=== PATIENT | male | born 1945 | race Caucasian/White ===

== ENCOUNTER 2016-06-20 22:58 | Emergency (ER) | payer BC ==
[~2016-06-20] VITALS: Ht 167.6 cm; Wt 109.8 kg
[2016-06-20 23:45] VITALS: PULSE 60; RESP 16; TEMP 97.5; O2SAT 94
[2016-06-21 00:03] VITALS: BP 142/76
[2016-06-21] MEDS ORDERED: NOVORP2 SQ (00:17)
[2016-06-21] MEDS ORDERED: FENO160T PO (00:18)
[2016-06-21] MEDS ORDERED: LISI-519 PO (00:19)
[2016-06-21] MEDS ORDERED: AZOR10TA4 PO (00:19)
[2016-06-21] MEDS ORDERED: NITR1SUB3 SL (00:20)
[2016-06-21] MEDS ORDERED: MULTTAB67 PO (00:20)
[2016-06-21] MEDS ORDERED: OMEGCAP PO (00:21)
[2016-06-21] MEDS ORDERED: ASCO500C PO (00:21)
[2016-06-21] MEDS ORDERED: ASPI1TAB69 PO (00:22)
[2016-06-21] MEDS ORDERED: COMB0.2S EACH EYE (00:22)
[2016-06-21] MEDS ORDERED: LATA0.002 EACH EYE (00:23)
[2016-06-21 01:10] LABS: BLOOD, URINE LARGE (NEG); KETONE, URINE NEG (NEG); NITRITE,URINE NEG (NEG); PH, URINE 5.5 (5.0-8.5)
[2016-06-21 01:17] VITALS: BP 179/78; PULSE 63; RESP 18; O2SAT 95
[2016-06-21 01:22] LABS: POTASSIUM 3.7 MEQ/L (3.5-5.1)
[2016-06-21 01:25] LABS: BICARBONATE 25.9 MEQ/L (21.0-32.0)
[2016-06-21 01:28] LABS: GLUCOSE,URINE 1000 OR GREATER mg/dL (NEG); URINE COLOR YELLOW (YELLW/STRAW)
[2016-06-21 01:30] LABS: SQUAMOUS EPITHELIAL CELL URINE 0-5 /hpf (0-5)
[2016-06-21 01:31] LABS: COMMENT (UR) CULT NOT INDICATED; CULTURE IF INDICATED CULT NOT INDICATED
[2016-06-21 01:32] LABS: MUCUS URINE RARE /lpf (OCC)
--- NOTE | 2016-06-21 01:45 | PD ---
HPI Chief Complaint: Complaint Time Seen by Provider: 00:09 Travel History International Travel<30 days: No Contact w/Intl Traveler<30days: No Traveled to known affect area: No History of Present Illness HPI Is a well 70-year-old man who presents to the emergency department complaining of being a blood clot today. He states that he was sitting in a chair when it collapsed earlier today. He felt fine. Later this evening and went to go urinate and urinated a long red blood clot. His never had trouble like this before. He takes a baby aspirin every day. He sees urologist for prostate problems. He gets up about 5-6 times per night most nights for urination. He still has trouble with dribbling. Is not on any medications now for his prostate. Never had gross hematuria before. History Past Medical History Narrative Medical Diabetes CAD Tetanus Vaccination: < 5 Years Influenza Vaccination: Yes Social History Alcohol Use: Yes (2 BEERS NIGHTLY) Tobacco Use: No Allergies-Medications (Allergen,Severity, Reaction): Coded Allergies: Sulfa (Verified Allergy, Unknown, DIFFICULTLY BREATHING, 06/21/16) Uncoded Allergies: LATEX (Allergy, Unknown, WELTS, 03/26/05) Reported Meds & Prescriptions Reported Meds & Active Scripts Active Reported Latanoprost Opth Drops (Latanoprost) 0.005% Drops 1 Drop EACH EYE HS Refrigerate until opened. Combigan Opth Drops (Brimonidine-Timolol Opth Drops) 0.2-0.5% Soln 1 Drop EACH EYE Q12HR Aspirin 81 Mg Tabdr 81 Mg PO DAILY Vitamin C (Ascorbic Acid) 500 Mg Cap 500 Mg PO [place]-3 Fish Oil/Vitamin (Fish Oil-Cholecalciferol) 1,000-1,000 Mg Cap 1 Cap PO BID Multiple Vitamin 1 Tab 1 Tab PO DAILY Nitroglycerin SL (Nitroglycerin) 0.4 Mg Subl 0.4 Mg SL DIRECTED PRN ONE TABLET UNDER THE TONGUE NEEDED FOR CHEST PAIN, MAY REPEAT EVERY FIVE MINUTES FOR A TOTAL OF 3 DOSES OR CALL 911 IF NO RELIEF Lisinopril 5 Mg Tab 5 Mg PO DAILY Rimma (Amlodipine-Olmesartan) 10-40 Mg Tab 1 Tab PO DAILY Fenofibrate 160 Mg Tab 160 Mg PO DAILY Novolin R Inj (Insulin Human Regular) 1,000 Unit/10 Ml Vial 50 Units SQ HS Review of Systems Except as stated in HPI: all other systems reviewed are Neg Physical Exam Narrative GENERAL: Well-appearing 70-year-old man, no acute distress. SKIN: Focused skin assessment warm/dry. HEAD: Atraumatic. Normocephalic. CARDIOVASCULAR: Regular rate and rhythm. No murmur appreciated. RESPIRATORY: No accessory muscle use. Clear to auscultation. Breath sounds equal bilaterally. GASTROINTESTINAL: Abdomen soft, non-tender, nondistended. Hepatic and splenic margins not palpable. MUSCULOSKELETAL: No obvious deformities. No clubbing. No cyanosis. No edema. NEUROLOGICAL: Awake and alert. No obvious cranial nerve deficits. Motor grossly within normal limits. Normal speech. PSYCHIATRIC: Appropriate mood and affect; insight and judgment normal. Data Data Last Documented VS Vital Signs Date Time Temp Pulse Resp B/P Pulse Ox O2 Delivery O2 Flow Rate FiO2 06/21/16 01:17 63 18 179/78 95 Room Air 06/20/16 23:45 97.5 Orders Urinalysis - C+S If Indicated (06/21/16 00:34) Basic Metabolic Panel (Bmp) (06/21/16 00:34) Labs Laboratory Tests Test 06/21/16 00:50 Urine Color YELLOW Urine Turbidity SLIGHT Urine pH 5.5 Urine Specific [place] 1.029 Urine Protein 100 mg/dL Urine Glucose (UA) 1000 OR GREATER mg/dL Urine Ketones NEG mg/dL Urine Occult Blood LARGE Urine Nitrite NEG Urine Bilirubin NEG Urine Leukocyte Esterase NEG Urine RBC 50-99 /hpf Urine WBC 3-5 /hpf Urine Squamous Epithelial 0-5 /hpf Cells Urine Mucus RARE /lpf Microscopic Urinalysis Comment CULT NOT INDICATED Sodium Level 140 MEQ/L Potassium Level 3.7 MEQ/L Chloride Level 105 MEQ/L Carbon Dioxide Level 25.9 MEQ/L Anion Gap 9 MEQ/L Blood Urea Nitrogen 21 MG/DL Creatinine 1.40 MG/DL Estimat Glomerular Filtration 50 ML/MIN Rate Random Glucose 271 MG/DL Calcium Level 8.8 MG/DL [facility] Medical Decision Making Medical Screen Exam Complete: Yes Emergency Medical Condition: Yes Interpretation(s) LABS: BMP with elevated BUN and creatinine, glucose 271. UA with glucose, and some blood, no evidence of infection. Differential Diagnosis Hematuria, BPH, malignancy, obstructive uropathy, other Narrative Course Medical decision making 70 year-old woman gross hematuria. Labs are overall unremarkable. Glucose is high. Unit creatinine are mildly elevated. He needs outpatient follow-up with his urologist. Diagnosis Primary Impression: Hematuria Patient Instructions: General Instructions Additional Instructions: Follow-up with your urologist as scheduled. Monitor your blood sugar over the next several days. Return to the emergency department for any new or worsening symptoms. Drink plenty of fluids and stay well-hydrated. Disposition: 01 DISCHARGE HOME Condition: Stable Alvin Mitchell MD June 21, 2016 01:45
== END 2016-06-21 02:00 | disposition home or self-care (01) ==
LOC: PHED 22:58
DX: R31.9 Hematuria, unspecified (principal); E11.9 Type 2 diabetes mellitus without complications; I25.10 Atherosclerotic heart disease of native coronary artery without angina pectoris
CPT/HCPCS: 80048; 81001; 99283